=== PATIENT | female | born 1995 | race Caucasian/White ===

== ENCOUNTER 2017-09-05 22:53 | Observation (INO) ==
[2017-09-05] MEDS ORDERED: PENICILLIN G POTASSIUM 5 MILLIONUNT in DEXTROSE 5 % IN WATER 100 ML IV ONE ×2 (23:36)
[2017-09-05] MEDS ORDERED: BETAMETHASONE ACETATE,SOD PHOS 6 MG/ML VIAL IM ONE (23:38)
[2017-09-05 23:55] LABS: Hematocrit 36.1 % (37.0-47.0); Hemoglobin 12.9 gm/dL (12.5-16.0); Mean Cell Volume 90.9 fl (78-100); Mean Corpuscular Hemoglobin 32.5 pg (27-31); Mean Corpuscular Hgb Conc 35.7 g/dl (32-36); Mean Platelet Volume 10.5 fl (6.0-9.5); Neutrophil # 14.8 K/mm3 (1.3-6.0); Neutrophil % 73.8 % (42-75.0); Platelet Count 209 K/mm3 (150-450); Red Blood Count 3.97 M/mm3 (4.2-5.4); Red Cell Distribution Width 12.6 % (11.5-14.0); White Blood Count 20.1 K/mm3 (4.0-10.5)
[2017-09-06] MEDS ORDERED: DEXTROSE 5%-LACTATED RINGERS 1,000 ML IV PRN (00:09)
[2017-09-06] MEDS: MAGNESIUM SULFATE IN WATER 50 ML, MAGNESIUM SULFATE IN WATER 50 ML IV ONE ×4 (00:10→00:27)
[2017-09-06] MEDS ORDERED: MAGNESIUM SULFATE IN WATER 1,000 ML IV SCH (00:15)
[2017-09-06 02:21] LABS: Urine Appearance Clear; Urine Bacteria None Seen; Urine Bilirubin Negative (NEGATIVE); Urine Blood 50 /ul (NEGATIVE); Urine Color Pale Yellow; Urine Ketone Negative (NEGATIVE); Urine Nitrite Negative (NEGATIVE); Urine Protein Negative (NEGATIVE); Urine RBC None Seen /hpf (0-5); Urine Urobilinogen Normal (NORMAL); Urine WBC None Seen /hpf (0-5)
[2017-09-06 02:22] LABS: Cocaine Ur Negative (NEGATIVE); Urine Barbiturate Negative (NEGATIVE); Urine Benzodiazepines Negative (NEGATIVE); Urine Opiates Negative (NEGATIVE); Urine PCP Negative (NEGATIVE); Urine THC Negative (NEGATIVE)
[2017-09-06] MEDS ORDERED: BETAMETHASONE ACETATE,SOD PHOS 6 MG/ML VIAL IM ONE (22:24)
[2017-09-06] MEDS ORDERED: BETAMETHASONE ACETATE,SOD PHOS 6 MG/ML VIAL ONE (22:30)
== END 2017-09-06 00:20 | disposition short-term general hospital (02) ==
LOC: OBCLINIC 22:53 → OB 23:41 → INTOOBSV 23:41
PROVIDERS: ADMIT Obstetrics & Gynecology; ATTEND Obstetrics & Gynecology
DX: Z3A.31 31 weeks gestation of pregnancy; Z72.0 Tobacco use; Z33.1 Pregnant state, incidental; O42.913 Preterm premature rupture of membranes, unspecified as to length of time between rupture and onset of labor, third trimester; O99.321 Drug use complicating pregnancy, first trimester
CPT/HCPCS: 36415; 59025; 80307; 81001; 85025; 87081; 96372; G0378; G0379; G0479

== ENCOUNTER 2019-12-26 04:47 | Inpatient (IN) ==
[2019-12-26 05:09] LABS: Hematocrit 34.8 % (37.0-47.0); Hemoglobin 12.1 gm/dL (12.5-16.0); Mean Cell Volume 93.8 fl (78-100); Mean Corpuscular Hemoglobin 32.6 pg (27-31); Mean Corpuscular Hgb Conc 34.8 g/dl (32-36); Mean Platelet Volume 10.3 fl (8-12.5); Platelet Count 277 K/mm3 (150-450); Red Blood Count 3.71 M/mm3 (4.2-5.4); Red Cell Distribution Width 13.3 % (11.5-14.0); White Blood Count 25.8 K/mm3 (4.0-10.5)
[2019-12-26 05:15] LABS: Total Cells Counted 100
[2019-12-26 05:17] LABS: Lymphocyte 14 % (20-51); Monocyte 3 % (0-9); Neutrophil 83 % (42-75); Neutrophil # 21.4 K/mm3 (1.3-6.0); Platelet Estimate Normal (NORMAL); RBC Morphology Normal (NORMAL)
[2019-12-26] MEDS: RINGER'S SOLUTION,LACTATED 1,000 ML IV PRN ×2 (05:19→06:24)
[2019-12-26 05:24] LABS: Albumin * 2.8 gm/dl (3.4-5.0); Anion Gap 14.3 mmol/L (6.8-13.8); BUN/Creatinine Ratio 10.8 (9.0-21.6); Bilirubin, Total 0.3 mg/dL (0.0-1.1); Ca. Corrected For Albumin 9.7 mg/dL (8.4-10.2); Calcium * 9.1 mg/dL (7.9-10.9); Carbon Dioxide 23.2 mmol/L (24-32.6); Cocaine Ur Negative (NEGATIVE); Potassium 3.5 mmol/L (3.4-4.6); Total Protein 6.9 gm/dL (6.2-8.2); Urine Barbiturate Negative (NEGATIVE); Urine Benzodiazepines Negative (NEGATIVE); Urine Opiates Negative (NEGATIVE); Urine PCP Negative (NEGATIVE); Urine THC Negative (NEGATIVE)
[2019-12-26] MEDS: OXYTOCIN 20 UNITS in RINGER'S SOLUTION,LACTATED 1,000 ML IV ONE ×2 (06:23→15:36)
[2019-12-26] MEDS ORDERED: BUPIVACAINE HCL/EPINEPHRINE 50 ML VIAL IJ ONE (07:49)
[2019-12-26] MEDS ORDERED: EPINEPHrine 1 MG/ML AMPUL ONE (07:49)
[2019-12-26] MEDS ORDERED: PHENYLEPHRINE HCL 10 MG/ML AMPUL ONE (07:49)
[2019-12-26] MEDS ORDERED: ceFAZolin SODIUM 1 GM VIAL ONE (08:02)
--- NOTE | 2019-12-26 08:05 | ANES ---
Anesthesia Pre Procedure Eval Vitals/Labs: Last Vital Signs Temp 36.8 C 12/26/19 05:21 Pulse 98 12/26/19 05:21 Resp 16 12/26/19 05:21 BP 144/77 H 12/26/19 05:21 Pulse Ox 96 12/26/19 05:21 HOME MEDICATIONS Vits96/Iron Fum/Folic [ S] 1 tab PO DAILY 10/17/17 [Last Taken 10/16/17 22:00] aspirin 81 mg chewable tablet 81 mg PO DAILY 08/03/19 [Last Taken Unknown] blood sugar diagnostic See Rx Instructions .ROUTE .MEDSUPPLY #100 ea 12/06/19 [Last Taken Unknown] blood-glucose meter See Rx Instructions .ROUTE .MEDSUPPLY #1 ea 12/06/19 [Last Taken Unknown] lancets See Rx Instructions .ROUTE .MEDSUPPLY #100 ea 12/06/19 [Last Taken Unknown] Allergies/Adverse Reactions: Allergies Allergy/AdvReac Type Severity Reaction Status Date / Time No Known Allergies Allergy Verified 12/26/19 04:56 - Planned Procedure Planned Procedure: Repeat Section poss abdominal scar revisi Medication List Reviewed:: Yes Allergies Verified: Yes Medical History (Last Reviewed 12/26/19 @ 08:03 by Rusty Rivero CRNA) Gestational diabetes mellitus (GDM) (Acute) Chronic hypertension with superimposed preeclampsia (Acute) History of gestational hypertension (Chronic) Gestational diabetes Onset Date: 12/14/19 Body piercing Onset Date: Unknown Tattoos Onset Date: Unknown Tobacco abuse Onset Date: Unknown Breech presentation Onset Date: 09/07/15 Gestational hypertension Onset Date: 10/29/17 Ovarian cyst (Resolved) Probable corpus luteum. Simple right ovarian cyst measuring 3.58 x 3.14 cm. Surgical History (Last Reviewed 12/26/19 @ 08:03 by Rusty Rivero CRNA) Previous section (Chronic) History of hernia repair Onset Date: ~2009 History of tonsillectomy and adenoidectomy Onset Date: ~2001 Previous section Onset Date: 09/07/15 [id number] presentation. [id number]. Family History (Last Reviewed 12/26/19 @ 08:03 by Rusty Rivero CRNA) Mother CHF (congestive heart failure) Myocardial infarction Hypertension Diabetes Grandfather CHF (congestive heart failure) Father Hypertension - Family Anesthesia History Family History:: no untoward family reactions to anesthesia, no familial bleeding tendencies, no family history of clotting disorders, no family history of premature - Airway/Neck/Teeth Within Normal Limits:: Yes Teeth Condition: intact Neck Exam: full range of motion Mallampatti Score: 3 Thyromental (T-M) distance: > 6 cm Mandibulo Hyoid distance: > 3 cm - Respiratory Respiratory Physical: lungs clear Smoking Status: Former smoker - quit one month Sleep Apnea currently treated: No Sleep Apnea by current assessment: No - Cardiovascular Tolerate Activity: Fair Heart Sounds: S1 & S2, Regular - Gastrointestinal NPO since: 2400 - Anesthesia Assessment and Plan ASA Class: PS, II, E Anesthesia Type Plan: Block - for post op pain relief, Spinal
--- NOTE | 2019-12-26 09:35 | OR ---
Operative Report - Dictated Report Narrative: Indication: 24-year-old 3 para 2 at 37 weeks with prior admitted for repeat low transverse section due to chronic hypertension with superimposed preeclampsia. status: Planned Pre Operative Diagnosis: Intrauterine at 37 0/7 weeks. Prior section. Chronic hypertension with superimposed preeclampsia. Gestational diabetes - diet controlled. Post Operative Diagnosis: Same. Procedure: Repeat low transverse section. Surgeon: Lorna Gan DO Motor Builder Winder: OR Staff Anesthesia: Spinal, TAP block Estimated Blood Loss: 300 mL Urine Output: 150 mL clear urine Fluids Replacement: 1250 mL Drains: Laird to gravity Surgical Complications: None Specimens: Placenta to pathology Findings: Male born at 0831 on 12/26/2017 with Apgars 8 and 9, weighing 3727 g in cephalic presentation with nuchal cord x1. Normal uterus, tubes, ovaries Technique: The patient was taken to the operating room and placed in dorsal supine position with a left lateral tilt. After adequate spinal anesthesia, laird catheter inserted, SCDs placed, and 2 g of Ancef given preoperatively, the abdominal cavity was entered using sharp and blunt dissection. Two rolled laps were placed in the pericolic gutters on either side of the uterus. A transverse incision was made in the lower uterine segment and extended laterally and upwardly with digital traction. Clear fluid was noted upon amniotomy. The nuchal cord was reduced and the infant was delivered easily. The was vigorously crying within seconds after delivery. The infant was dried and stimulated with warm towels. After approximately 45 seconds, the cord was clamped and cut and was handed off to awaiting concrete wall grinder operator. The placenta was allowed to deliver spontaneously. The uterus was cleared of clot and debris. Uterine incision was closed with 0 Vicryl using a running stitch. A second imbricating layer was placed. A few small bleeders on the uterine serosa/peritoneum were controlled with cautery. Excellent hemostasis was noted. The rolled laps were removed from the abdominal cavitiy. The peritoneum was closed with a running 3-0 Monocryl. The same suture was used to approximate the rectus and pyramidalis muscles. The fascia was closed with a running 0 Vicryl. The subcutaneous layer was closed with a running 3-0 Monocryl. The same suture was used to approximate the subdermal layer. The skin was closed with a running 4-0 Monocryl and Dermabond. A single simple interrupted suture was placed on the left side of the uterine incision to approximate a small skin irregularity. Sponge, lap, needle, and instrument count were correct x 2. Disposition: To post anesthesia care unit in good condition
--- NOTE | 2019-12-26 09:35 | PN ---
Progess Note - Interim Date: 12/26/19 Time: 09:35 History for MU History for MU Definition: * The number of deliveries resulting in a live the patient experienced prior to current hospitalization * The previous delivery of live twins or any live multiple gestation is considered one live event. *If primagravida or nulliparous is documented select zero for the number of previous live births. Live Events: Live Events: 2
[2019-12-26] MEDS ORDERED: BISACODYL 10 MG SUPP.RECT RC PRN (09:38)
[2019-12-26] MEDS ORDERED: SENNOSIDES 8.6 MG TABLET PO PRN (09:38)
[2019-12-26] MEDS ORDERED: IBUPROFEN 800 MG TABLET PO PRN (09:38)
[2019-12-26] MEDS ORDERED: ONDANSETRON HCL/PF 2 MG/ML VIAL IV PRN (09:38)
[2019-12-26] MEDS ORDERED: SIMETHICONE 80 MG TAB.CHEW PO PRN (09:38)
--- NOTE | 2019-12-26 09:48 | ANES ---
Post Anesthesia Discharge - Transfer of Care Transfer of Care handoff given to nurse: Yes - Discharge from PACU Discharge from PACU when meets criteria: Yes - Alert and comfortable
--- NOTE | 2019-12-26 09:49 | ANES ---
Anesthesia Procedure Note Procedure Note: ANESTHESIA PROCEDURE NOTE Date of Procedure: [12/26/2019 Time of procedure: 9:35 AM. Performed by: ANGELES Shepherd CRNA, MSN Collections Officer: Faiza Almonte RN. Preprocedure diagnosis: Post section pain. Post procedure diagnosis: Same. Procedure: Bilateral TAP block Indications: Post section pain relief. Findings: See below. Details of the procedure: The patient was brought to PACU and placed in the supine position. The patient was prepped with chlorhexidine and using ultrasound guidance the 3 abdominal muscular planes were identified and lidocaine 1% was infiltrated to the skin of the intended injection site. Under ultrasound guidance the the internal oblique and transverse this abdominis muscle layers were approached with visualization of a 4 inch block needle until the tip of the needle rested in the plane between the muscles. 25 mL bupivacaine 0.25% with 1-200,000 epinephrine was injected and the procedure was repeated on the other side. Please see radiology/ultrasound report for details and images of the procedure. EBL: 0 Fluids: N/A. Specimen: N/A. Post procedure condition: The patient tolerated the procedure well. No complications were noted. Thank you for this consultation. Rusty Rivero CRNA, ARNP, MSN
--- NOTE | 2019-12-26 10:24 | ANES ---
Post Anesthesia Assessment - Vital Signs Vitals: Last Vital Signs Temp 36.8 C 12/26/19 09:55 Pulse 75 12/26/19 09:55 Resp 18 12/26/19 09:55 BP 147/49 H 12/26/19 09:55 Pulse Ox 98 12/26/19 09:55 Airway Patency: Normal - Mental Status Level Of Consciousness: Awake, Alert, Appropriate - Pain Level Pain Score: 0 - N/V Assessment Nausea/Vomiting Presence: None Dehydration:: No
[2019-12-26] MEDS: IBUPROFEN 800 MG TABLET PO PRN ×3 (10:33→22:33)
[2019-12-26] MEDS: oxyCODONE HCL/ACETAMINOPHEN 1 TAB TABLET PO PRN ×4 (10:33→22:32)
[2019-12-26] MEDS: ENOXAPARIN SODIUM 40 MG/0.4 ML SYRG SC SCH (17:01)
[2019-12-26] MEDS ORDERED: RHO(D) IMMUNE GLOBULIN 1,500 UNIT SYRINGE IM ONE (18:49)
[2019-12-26] MEDS: DOCUSATE SODIUM 100 MG CAPSULE PO SCH (20:59)
[2019-12-27] MEDS ORDERED: ceFAZolin SODIUM 1 GM VIAL IV PRN (06:00)
[2019-12-27] MEDS: oxyCODONE HCL/ACETAMINOPHEN 1 TAB TABLET PO PRN ×3 (07:08→22:23)
[2019-12-27] MEDS: IBUPROFEN 800 MG TABLET PO PRN ×3 (07:09→18:45)
[2019-12-27] MEDS: DOCUSATE SODIUM 100 MG CAPSULE PO SCH ×2 (08:29→21:17)
--- NOTE | 2019-12-27 08:58 | PN ---
Subjective - Date and Time Seen Date: 12/27/19 Time: 08:56 Objective - Vitals Vitals: Last Vital Signs Temp 36.6 C 12/27/19 07:10 Pulse 81 12/27/19 07:10 Resp 14 12/27/19 07:10 BP 141/86 H 12/27/19 08:33 Pulse Ox 97 12/27/19 02:15 Fasting blood sugar 68, 1 hour postprandial pending Patient denies complaints -specifically denies headache, visual changes, or epigastric pain. Tolerating regular diet. Ambulating without difficulty. Pain well controlled. Lochia wnl. Patella DTR-3/4, no clonus Abdomen - soft, appropriately tender Incision -clean, dry, intact uterus - firm, at umbilicus -1 no calf tenderness Impression: Post op day #1 s/p repeat section. Chronic hypertension with superimposed preeclampsia-stable. Gestational diabetes-resolved. Plan: Continue routine post-operative/ care Cauti Physician Documentation - Urinary Catheter Management Urethral (Cobian) Date of Insertion: 12/26/19 Time of Insertion: 08:26
[2019-12-27] MEDS ORDERED: PRENATAL VITS96/IRON FUM/FOLIC 1 TAB TABLET PO SCH (09:00)
[2019-12-27] MEDS: ENOXAPARIN SODIUM 40 MG/0.4 ML SYRG SC SCH (17:04)
[2019-12-28] MEDS: IBUPROFEN 800 MG TABLET PO PRN (00:51)
[2019-12-28] MEDS: DOCUSATE SODIUM 100 MG CAPSULE PO SCH ×2 (07:21→09:23)
[2019-12-28 09:33] LABS: Hematocrit 37.7 % (37.0-47.0); Hemoglobin 12.4 gm/dL (12.5-16.0); Mean Cell Volume 97.7 fl (78-100); Mean Corpuscular Hemoglobin 32.1 pg (27-31); Mean Corpuscular Hgb Conc 32.9 g/dl (32-36); Mean Platelet Volume 10.5 fl (8-12.5); Platelet Count 239 K/mm3 (150-450); Red Blood Count 3.86 M/mm3 (4.2-5.4); Red Cell Distribution Width 13.3 % (11.5-14.0); White Blood Count 13.9 K/mm3 (4.0-10.5)
[2019-12-28 09:55] LABS: Albumin * 2.5 gm/dl (3.4-5.0); Anion Gap 15.7 mmol/L (6.8-13.8); BUN/Creatinine Ratio 13.3 (9.0-21.6); Bilirubin, Total 0.3 mg/dL (0.0-1.1); Ca. Corrected For Albumin 9.7 mg/dL (8.4-10.2); Calcium * 8.8 mg/dL (7.9-10.9); Carbon Dioxide 20.8 mmol/L (24-32.6); Potassium 3.5 mmol/L (3.4-4.6); Total Protein 6.5 gm/dL (6.2-8.2)
[2019-12-28 10:01] VITALS: BP 147/77
--- NOTE | 2019-12-28 12:16 | PN ---
Subjective - Date and Time Seen Date: 12/28/19 Time: 12:15 Objective - Vitals Vitals: Last Vital Signs Temp 36.7 C 12/28/19 07:39 Pulse 78 12/28/19 09:30 Resp 18 12/28/19 07:39 BP 147/77 H 12/28/19 10:00 Pulse Ox 99 12/28/19 07:39 Patient denies complaints. Ambulating well. Tolerating regular diet. Pain well controlled. Lochia wnl. Patella DTR-2/4, no clonus Abdomen - soft, appropriately tender Incision -clean, dry, intact uterus - firm, at umbilicus -2 no calf tenderness Impression: Post op day #2 s/p repeat section. Chronic hypertension with superimposed preeclampsia. Gestational diabetes-resolved. Plan: Continue routine post-operative/ care. Since baby has been transferred to [facility], patient will be discharged early with 1 week follow-up in the office. Preeclampsia precautions. - Abnormal Lab Findings Abnormal Lab Findings: Abnormal Lab Results 12/28/19 12/28/19 Range/Units 09:16 09:16 WBC 13.9 H D (4.0-10.5) K/mm3 RBC 3.86 L (4.2-5.4) M/mm3 Hgb 12.4 L (12.5-16.0) gm/dL MCH 32.1 H (27-31) pg Immature Gran % (Auto) 0.60 H (0.001-0.429) % Immature Gran # (Auto) 0.08 H (0.000-0.0310) K/mm3 Neutrophils # 10.0 H (1.3-6.0) K/mm3 Carbon Dioxide 20.8 L (24-32.6) mmol/L Anion Gap 15.7 H (6.8-13.8) mmol/L Random Glucose 111 H (70-110) mg/dL ALT 17 L (19-67) U/L Albumin 2.5 L (3.4-5.0) gm/dl Cauti Physician Documentation - Urinary Catheter Management Urethral (Cobian) Date of Insertion: 12/26/19 Time of Insertion: 08:26
== END 2019-12-28 12:15 | disposition home or self-care (01) | DRG 787 ==
LOC: OB 04:47
PROVIDERS: ADMIT Obstetrics & Gynecology; ATTEND Obstetrics & Gynecology
CPT/HCPCS: 36415; 59025; 80053; 80307; 85007; 85025; 85460; 88307; 88888; J2790